=== PATIENT | male | born 1960 | race Caucasian/White ===

== ENCOUNTER 2021-08-03 05:34 | Day surgery (SDC) | payer MEDICAID ==
[2021-07-28 14:27] LABS: BASOPHILS # (AUTO) 0.1 X10'3 (0-0.2); EOSINOPHILS # (AUTO) 0.2 X10'3 (0-0.9); EOSINOPHILS % (AUTO) 2.3 % (0-6); LYMPHOCYTES # (AUTO) 3.6 X10'3 (1.1-4.8); LYMPHOCYTES % (AUTO) 34.6 % (21-51); MEAN CORPUSCULAR HEMOGLOBIN 32.7 PG (27.0-31.0); MEAN CORPUSCULAR VOLUME 96.2 FL (78-98); MEAN PLATELET VOLUME 7.3 FL (7.4-10.4); MONOCYTES # (AUTO) 1.1 X10'3 (0-0.9); NEUTROPHILS # (AUTO) 5.3 X10'3 (1.8-7.7); NEUTROPHILS % (AUTO) 51.1 % (42-75); PRE OP PLATELET COUNT 312 X10'3 (140-440); RED CELL DISTRIBUTION WIDTH 13.3 % (11.5-14.5)
[2021-07-28 14:48] LABS: ALBUMIN/GLOBULIN RATIO 1.1 (1.1-1.5); ALKALINE PHOSPHATASE 81 IU/L (46-116); BLOOD UREA NITROGEN 13 MG/DL (7-18); BUN/CREATININE RATIO 12.7 (5.4-32.0); CALCIUM 9.3 MG/DL (8.5-10.1); CHLORIDE 104 MMOL/L (99-107); CREATININE 1.02 MG/DL (0.60-1.10); PRE OP ALT 35 U/L (30-65); PRE OP ANION GAP 8 (8-16); PRE OP BILIRUB, TOTAL 0.5 MG/DL (0.0-1.0); PRE OP GLUCOSE 111 MG/DL (70-104); PRE OP SODIUM 137 MMOL/L (135-145); TOTAL CARBON DIOXIDE 24.9 MMOL/L (24-32); TOTAL PROTEIN 7.8 G/DL (6.4-8.2); eGFR 74 ML/MIN
[2021-07-28 14:57] LABS: PRE OP AST 22 U/L (10-37); PRE OP POTASSIUM 4.2 MMOL/L (3.4-5.1)
[2021-08-03] VITALS (9 sets, daily range): BP systolic 100–125; BP diastolic 68–93
[~2021-08-03] VITALS: Ht 177.8 cm; Wt 96.0 kg
[~2021-08-03 05:34] MED LIST: ALPR1TAB7 PO; ATOR20TA PO; BUSP15TA7 PO; ERGO500054 PO; IBUP-1986 PO; OMEP20CA16 PO; QUET25TA36 PO; UMEC1DIS INH; albuterol 2.5 MG/3 ML nebule NEB ONE; ceFAZolin inj. 2,000 MG in dextrose 5%-water 100 ML IV ONE; famotidine 20mg tablet PO ONE; ringers solution, lacted 1,000 ML IV SCH
[2021-08-03] MEDS ORDERED: ROPIVAcaine 0.5% (5mg/ml) 30ml vial ONE (07:00)
[2021-08-03] MEDS ORDERED: midazolam 1 mg/ML 2ml injection ONE (07:06)
[2021-08-03] MEDS ORDERED: fentaNYL/PF 50MCG/1 ML 2ML syringe ONE ×2 (07:06→08:49)
[2021-08-03] MEDS ORDERED: LIDOcaine 2% (20mg/ml) 5ml vial ONE (07:07)
[2021-08-03] MEDS ORDERED: propofol inj 20 ML IV ONE (07:07)
[2021-08-03] MEDS ORDERED: ondansetron/PF 4mg/2ml inj ONE (07:07)
[2021-08-03] MEDS ORDERED: fentaNYL/PF 50MCG/1 ML 2ML syringe IV PRN ×2 (07:15)
[2021-08-03] MEDS ORDERED: morphine 4 MG/ML inj SYRINge IV PRN (07:15)
[2021-08-03] MEDS ORDERED: morphine 2 MG/ML inj. syringe IV PRN (07:15)
[2021-08-03] MEDS ORDERED: labetalol 20mg/4ml (5mg/ml) syringe IV PRN (07:15)
[2021-08-03] MEDS ORDERED: ringers solution, lacted 1,000 ML IV SCH (07:15)
[2021-08-03] MEDS ORDERED: hydrALAZINE 20mg/ml inj. IV PRN (07:15)
[2021-08-03] MEDS ORDERED: ondansetron/PF 4mg/2ml inj IV PRN (07:15)
[2021-08-03] MEDS ORDERED: ePHEDrine 50MG/ML INJ. ONE (07:23)
[2021-08-03] MEDS ORDERED: dexamethasone sod phosphate 10mg/ml inj ONE (07:23)
[2021-08-03] MEDS ORDERED: sevoflurane 250ml liquid IH ONE (07:23)
[2021-08-03] MEDS ORDERED: acetaminophen 1,000mg/100ml IV 100 ML IV ONE (08:34)
[2021-08-03] MEDS ORDERED: ketorolac trometh. 30mg/ml inj. ONE (08:47)
--- NOTE | 2021-08-03 09:15 | NUR ---
Received from OR via [facility] IN STABLE CONDITION WITH ORAL AIRWAY IN PLACE , accompanied by Anesthesiologist STRAW HAT PRESSER and report given by STRAW HAT PRESSER AND Anesthesiolgist. Addendum: 08/03/21 at 0926 by Lori Foss RN Amended: Links added.
[2021-08-03] MEDS ORDERED: HYDROcodone/acetaminophen 10/325mg tab PO PRN (09:30)
--- NOTE | 2021-08-03 10:45 | NUR ---
PATIENT DISCHARGED FROM PACU IN STABLE CONDITION AFTER WRITTEN AND VERBAL DISCHARGE INSTRUCTIONS GIVEN. PATIENT AND GAVE VERBAL UNDERSTANDING OF INSTRUCTIONS GIVEN. LUIS Addendum: 08/03/21 at 1104 by Lori Foss RN Amended: Links added.
--- NOTE | 2021-08-03 10:45 | NUR ---
PATIENT LEFT FACILITY VIA WHEELCHAIR WITH RN. Addendum: 08/03/21 at 1106 by Lori Foss RN Amended: Links added.
--- NOTE | 2021-08-03 10:45 | NUR ---
PATIENT LEFT FACILITY VIA WHEELCHAIR WITH RN.
== END 2021-08-03 10:45 | disposition home or self-care (01) ==
LOC: PAS 05:34
PROVIDERS: ATTEND Orthopaedic Surgery
DX: M19.011 Primary osteoarthritis, right shoulder (principal); M75.21 Bicipital tendinitis, right shoulder; M75.41 Impingement syndrome of right shoulder; S43.431A Superior glenoid labrum lesion of right shoulder, initial encounter; J43.9 Emphysema, unspecified; F41.9 Anxiety disorder, unspecified; K21.9 Gastro-esophageal reflux disease without esophagitis; F32.A Depression, unspecified; G89.18 Other acute postprocedural pain; F17.210 Nicotine dependence, cigarettes, uncomplicated; Z98.890 Other specified postprocedural states; Z79.899 Other long term (current) drug therapy; Z20.822 Contact with and (suspected) exposure to COVID-19; Z72.89 Other problems related to lifestyle; X58.XXXA Exposure to other specified factors, initial encounter; Y93.89 Activity, other specified; Y92.89 Other specified places as the place of occurrence of the external cause; Y99.8 Other external cause status
CPT/HCPCS: 29824; 29826; 29828; 36415; 64415; 71046; 76942; 80053; 82948; 85025; C1713; J0131; J0690; J1100; J1885; J2250; J2405; J2704; J2795; J3010; J3490; J7060; J7120; U0003; U0005; Z7506; Z7508; Z7512; A4565; A4618; A6253; A6449; A7000